=== PATIENT | female | born 1955 | race Caucasian/White ===

== ENCOUNTER 2020-12-12 07:50 | Day surgery (SDC) | payer OTHER ==
[2020-12-08 08:54] LABS: Potassium 4.1 mmol/L (3.5-5.1)
[2020-12-08 08:56] LABS: Absolute Lymphocytes (CBC) 1.9 K/uL (0.7-4.9); Basophils % 0.4 % (0-1.3); Hematocrit 38.4 % (36.0-45.0); Lymphocytes % 29.1 % (15.3-44.8); MPV 8.8 fL (7.6-11.3); RBC Red Blood Cell Count 4.68 M/uL (3.86-4.86)
[2020-12-08 08:58] LABS: Protime INR 0.91
--- NOTE | 2020-12-08 09:07 | RAD REPORT ---
EXAM DESCRIPTION: RAD - Chest Pa And Lat (2 Views) - 12/08/2020 8:30 am CLINICAL HISTORY: preop Chest pain. COMPARISON: Chest Pa And Lat (2 Views) dated 01/22/2020 FINDINGS: The lungs are clear. The heart is normal in size. No displaced fractures. IMPRESSION: No acute or concerning finding suspected.
[2020-12-12] MEDS ORDERED: CEFAZOLIN/SWI 1gm 2 GM/20 ML SYR ONE (08:36)
[2020-12-12] MEDS ORDERED: Ringers Lactate 1,000 ML IV ONE (08:36)
[2020-12-12 08:48] VITALS: O2SAT 97
[2020-12-12] MEDS ORDERED: MIDAZOLAM HCL 2 MG/2 ML INJ ONE (09:08)
[2020-12-12] MEDS ORDERED: propofoL 200 MG/20 ML VIAL IV ONE (09:08)
[2020-12-12] MEDS ORDERED: FENTANYL CITR 100 MCG/2 ML ONE (09:08)
[2020-12-12] MEDS ORDERED: ONDANSETRON 4 MG/2 ML VIAL ONE (09:09)
[2020-12-12] MEDS ORDERED: LIDOCAINE 1% MPF 30 ML VIAL ONE (09:09)
[2020-12-12] MEDS ORDERED: KETOROLAC 30 MG/ML INJ ONE (09:09)
[2020-12-12] MEDS ORDERED: NS 0.9% VIAL 30 ML ONE (09:09)
[2020-12-12] MEDS ORDERED: dexAMETHasone 10 MG/ML VIAL ONE (09:09)
[2020-12-12] MEDS ORDERED: LIDOCAINE 2% MPF 5 ML VIAL ONE (09:09)
[2020-12-12] MEDS ORDERED: ACETAMINOPHEN 500 MG TAB PO ONE (09:50)
[2020-12-12] MEDS ORDERED: CELECOXIB 100 MG CAPSULE PO ONE (09:50)
[2020-12-12] MEDS ORDERED: BUPIVACAINE 0.25% PF 10 ML VIAL ONE (09:56)
[2020-12-12] MEDS ORDERED: ACETAMINOPHEN 500 MG TAB ONE (10:10)
[2020-12-12] MEDS ORDERED: CELECOXIB 100 MG CAPSULE ONE (10:10)
--- NOTE | 2020-12-12 10:54 | P.BOP ---
Preoperative diagnosis: right carpal tunnel syndrome Postoperative diagnosis: same Primary procedure: right open carpal tunnel release Cuff Matcher: NONE,NONE Estimated blood loss: 3 cc Specimen: none Findings: see dictation Anesthesia: Zen Block Complications: None Implants: none Fluids & blood products: per anesthesia record Transferred to: Recovery Room Condition: Good
[2020-12-12 10:58] VITALS: BP 130/51; TEMP 97.6
[2020-12-12] MEDS ORDERED: CODEINE 30MG/APAP 300MG TAB PO ONE (11:13)
[2020-12-12] MEDS ORDERED: CODEINE 30MG/APAP 300MG TAB ONE (11:32)
--- NOTE | 2020-12-13 00:47 | OP ---
Date of Procedure: 12/12/2020 Surgeon: Yvon Boyd MD Preoperative Diagnosis: Right carpal tunnel syndrome. Postoperative Diagnosis: Right carpal tunnel syndrome. Procedure Performed: Right open carpal tunnel release. Anesthesia: [place] block. Fluids: Per Anesthesia records. Estimated Blood Loss: Less than 20 cc. Complications: None. Implants: None. Indications For The Procedure: Alice is a 65-year-old female who presented to my clinic with signs, symptoms and EMG findings consistent with a right carpal tunnel syndrome. The patient failed conserv ative treatment measures and had significant symptoms that interfered with her activities of daily li ving. I discussed with the patient at length risks and benefits associated with operative and nonope rative treatment. She expressed understanding and elected to proceed with operative treatment. Description Of Procedure: After informed consent was obtained, the patient was identified in the pre operative holding area. The right upper extremity was marked. The patient was then brought back to the operating room, transferred to the operating table in a supine fashion and placed under [place] bloc k anesthesia. The right upper extremity was then prepped and draped in usual sterile fashion. A dafne e-out was initiated. The correct patient and procedure confirmed and identified. The patient did re ceive her preoperative prophylactic antibiotics. Approximately, a 3 cm incision was made over the ul kamar hand just ulnar to the thenar crease. Dissection was then taken down to the palmar fascia, which was identified. A Jackson elevator was then placed just deep to the palmar fascia and transverse carp al ligament. A 15 blade was then used to release the palmar fascia as well as transverse carpal liga ment under direct visualization. A Jackson elevator was used to protect the median nerve at all times. Metzenbaums were then used to release any remaining fascial bands and most proximal aspect of the t ransverse carpal ligament. The wound was then irrigated thoroughly with normal saline. The skin was approximated using a 5-0 Prolene. Sterile dressings were applied. The patient was awakened and tra nsferred to PACU in stable condition. Postoperative Plan: Alice will be nonweightbearing of her right upper extremity. She may work on ra nge of motion exercises. She will follow up in my clinic in 1 week for suture removal. CV/MODL Voice ID: [id number] Report ID: [id number]
== END 2020-12-12 12:10 | disposition home or self-care (01) ==
LOC: OR 07:50
PROVIDERS: ATTEND Orthopaedic Surgery Sports Medicine
PROC: 01N50ZZ Release Median Nerve, Open Approach (ICD-10-PCS; principal; 2020-12-12 10:00)
DX: G56.01 Carpal tunnel syndrome, right upper limb (principal); M79.641 Pain in right hand; Z20.822 Contact with and (suspected) exposure to COVID-19
CPT/HCPCS: 93005; 85025; 80048; 36415; 85610; 85730; 71046; 64721; U0002; J2704; J2250; J3010; J1100; J0690; J7120; J2405